=== PATIENT | female | born 1955 | race African-American/Black ===

== ENCOUNTER → 2018-03-10 | Outpatient (CLI) | payer BC, OTHER ==
--- NOTE | 2018-03-10 16:20 | RADIOLOGY REPORT (SQ) ---
EXAM DESCRIPTION: U/S RETROPERITON (RENAL/AORTA) COMPLETED DATE/TIME: 03/10/2018 4:02 pm REASON FOR STUDY: N18.3 CHRONIC KIDNEY DISEASE, STAGE 3 (MODERATE) I10 ESSENTIAL (PRIMARY) HY N18.3 CHRONIC KIDNEY DISEASE, STAGE 3 (MODERATE) I10 ESSENTIAL (PRIMARY) HYPERTENSION COMPARISON: None. TECHNIQUE: Dynamic and static grayscale images acquired of the kidneys and bladder and recorded on P ACS. Additional selected color Doppler and spectral images recorded. LIMITATIONS: None. FINDINGS: RIGHT KIDNEY: Normal size, 8.2 cm. Normal echogenicity. No solid or suspicious masses. Th ere is a 3.7 x 3.5 x 3.9 cm cyst. No hydronephrosis. No calcifications. LEFT KIDNEY: Normal size, 10.3 cm. Normal echogenicity. No solid or suspicious masses. No hydronephr osis. No calcifications. BLADDER: Ureteral jets were not seen. The bladder was incompletely distended. OTHER FINDINGS: No other significant finding. IMPRESSION: Normal renal ultrasound. The bladder was not well evaluated. TECHNICAL DOCUMENTATION: JOB ID: [id number] [employer]- All Rights Reserved Reading location - IP/workstation name: [email or web address]
== END ==
LOC: RAD 16:09
PROVIDERS: ATTEND Internal Medicine Nephrology
DX: N18.3 Chronic kidney disease, stage 3 (moderate) (principal)
CPT/HCPCS: 76770

== ENCOUNTER → 2018-09-23 | Outpatient (CLI) | payer BC, OTHER ==
--- NOTE | 2018-09-23 08:49 | RADIOLOGY REPORT (SQ) ---
EXAM DESCRIPTION: U/S RETROPERITON (RENAL/AORTA) COMPLETED DATE/TIME: 09/23/2018 7:53 am REASON FOR STUDY: CHRONIC KIDNEY DISEASE STAGE 3 N18.3 CHRONIC KIDNEY DISEASE, STAGE 3 (MODERATE) COMPARISON: 03/10/2018 TECHNIQUE: Dynamic and static grayscale images acquired of the kidneys and bladder and recorded on P ACS. Additional selected color Doppler and spectral images recorded. LIMITATIONS: None. FINDINGS: RIGHT KIDNEY: Right kidney measures 12.10 cm. There is a 4.4 cm interpolar simple appeari ng cyst mildly increased in size from prior exam dated 2014. No discrete solid mass. No evidence of hydronephrosis. No nephrolithiasis. LEFT KIDNEY: Left kidney measures 12.0 cm. No suspicious solid mass. No hydronephrosis or nephroli thiasis. BLADDER: Unremarkable partially distended urinary bladder. OTHER FINDINGS: No other significant finding. IMPRESSION: No evidence of hydronephrosis or nephrolithiasis. 4.4 cm right renal cyst. TECHNICAL DOCUMENTATION: JOB ID: [id number] [employer]- All Rights Reserved Reading location - IP/workstation name: [facility]
== END ==
LOC: RAD 07:17
PROVIDERS: ATTEND Internal Medicine Nephrology
DX: N18.3 Chronic kidney disease, stage 3 (moderate) (principal); N28.1 Cyst of kidney, acquired
CPT/HCPCS: 76770